=== PATIENT | male | born 1955 | race Caucasian/White ===

== ENCOUNTER 2022-01-15 09:20 | Day surgery (SDC) | payer MEDICARE, BC ==
[~2022-01-15] VITALS: Ht 175.3 cm; Wt 94.0 kg
[2022-01-15] VITALS (10 sets, daily range): BP systolic 110–154; BP diastolic 55–92
[2022-01-15] MEDS ORDERED: normal saline 1,000 ML IV SCH (09:45)
[2022-01-15] MEDS ORDERED: diphenhydrAMINE 25mg capsule PO PRN (09:45)
[2022-01-15 10:27] LABS: BASOPHILS # (AUTO) 0.1 X10'3 (0-0.2); BASOPHILS % (AUTO) 0.9 % (0-1); EOSINOPHILS # (AUTO) 0.2 X10'3 (0-0.9); EOSINOPHILS % (AUTO) 2.9 % (0-6); HEMATOCRIT 52.2 % (42.0-52.0); HEMOGLOBIN 17.7 g/dl (14.0-17.9); LYMPHOCYTES # (AUTO) 1.3 X10'3 (1.1-4.8); LYMPHOCYTES % (AUTO) 15.2 % (21-51); MEAN CORPUSCULAR HEMOGLOBIN 32.6 PG (27.0-31.0); MEAN CORPUSCULAR VOLUME 95.8 FL (78-98); MEAN PLATELET VOLUME 9.1 FL (7.4-10.4); MONOCYTES # (AUTO) 0.6 X10'3 (0-0.9); MONOCYTES % (AUTO) 6.6 % (2-12); NEUTROPHILS # (AUTO) 6.2 X10'3 (1.8-7.7); NEUTROPHILS % (AUTO) 74.4 % (42-75); PLATELET COUNT 189 X10'3 (140-440); RED BLOOD COUNT 5.45 X10'6 (4.70-6.10); RED CELL DISTRIBUTION WIDTH 13.8 % (11.5-14.5); WHITE BLOOD COUNT 8.4 X10'3 (4.5-11.0)
[2022-01-15] MEDS ORDERED: METF-1203 PO (10:29)
[2022-01-15] MEDS ORDERED: TRIA1TAB3 PO (10:29)
[2022-01-15] MEDS ORDERED: ATOR20TA66 PO (10:29)
[2022-01-15] MEDS ORDERED: ESOM40CA54 PO (10:29)
[2022-01-15] MEDS ORDERED: RAMI5CAP65 PO (10:31)
[2022-01-15] MEDS ORDERED: ASPI81TA52 PO (10:31)
[2022-01-15 10:42] LABS: ALBUMIN 3.9 G/DL (3.4-5.0); ANION GAP 11 (8-16); BLOOD UREA NITROGEN 19 MG/DL (7-18); BUN/CREATININE RATIO 22.4 (5.4-32.0); CALCIUM 9.3 MG/DL (8.5-10.1); CHLORIDE 104 MMOL/L (99-107); CREATININE 0.85 MG/DL (0.60-1.10); GLUCOSE 127 MG/DL (70-104); MAGNESIUM 1.7 MG/DL (1.5-2.4); POTASSIUM 3.8 MMOL/L (3.5-5.1); SODIUM 141 MMOL/L (135-145); TOTAL CARBON DIOXIDE 25.9 MMOL/L (24-32); eGFR 90 ML/MIN
[2022-01-15] MEDS ORDERED: iohexol 350MG/ML 100ml bottle IV ONE ×3 (10:53→13:28)
[2022-01-15] MEDS ORDERED: fentaNYL/PF 50MCG/1 ML 2ML syringe ONE (10:53)
[2022-01-15] MEDS ORDERED: LIDOcaine 1% 30ml preserv. free vial ONE (10:53)
[2022-01-15] MEDS ORDERED: midazolam 1 mg/ML 2ml injection ONE ×2 (10:53→13:06)
[2022-01-15] MEDS ORDERED: heparin 1,000unit/ml 10ml vial 10 ML ONE (12:32)
[2022-01-15] MEDS ORDERED: verapamil 2.5 mg/ml inj IV ONE (12:32)
[2022-01-15] MEDS ORDERED: nitroGLYCERIN-Tridil 50MG/D5W 250 ML IV ONE (12:32)
[2022-01-15] MEDS ORDERED: ticagrelor 90mg tablet ONE (13:53)
[2022-01-15] MEDS ORDERED: ondansetron/PF 4mg/2ml inj IV PRN (14:25)
[2022-01-15] MEDS ORDERED: proCHLORperazine 10 MG/2 ml inj IV PRN (14:25)
[2022-01-15] MEDS ORDERED: normal saline 1000ml 1,000 ML IV SCH (14:25)
[2022-01-15] MEDS ORDERED: HYDROcodone/acetaminophen 10/325mg tab PO PRN (14:25)
[2022-01-15] MEDS ORDERED: HYDROcodone/acetaminophen 5mg/325mg tablet PO PRN (14:25)
== END 2022-01-15 17:15 | disposition home or self-care (01) ==
LOC: SSTAY O 09:20
PROVIDERS: ATTEND Internal Medicine Cardiovascular Disease
DX: I25.10 Atherosclerotic heart disease of native coronary artery without angina pectoris (principal); E78.00 Pure hypercholesterolemia, unspecified; I10 Essential (primary) hypertension; E11.9 Type 2 diabetes mellitus without complications; K21.9 Gastro-esophageal reflux disease without esophagitis; I49.3 Ventricular premature depolarization; F17.200 Nicotine dependence, unspecified, uncomplicated; Z98.1 Arthrodesis status; Z98.890 Other specified postprocedural states; Z79.82 Long term (current) use of aspirin; Z79.84 Long term (current) use of oral hypoglycemic drugs; Z79.899 Other long term (current) drug therapy
CPT/HCPCS: 36415; 80048; 82948; 83735; 85025; 85610; 92978; 93005; 93458; 99152; 99153; A6258; C1725; C1751; C1753; C1769; C1874; C1894; C9600; J1644; J2250; J3010; J3490; J7030; Q0163; Q9967; A6402